=== PATIENT | male | born 1950 | race Caucasian/White ===

== ENCOUNTER 2018-05-05 14:06 | Outpatient (CLI) ==
--- NOTE | 2018-05-06 16:54 | MRI ---
EXAM: Brain MRI without contrast. 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 COMPARISON: Brain MRI with and without contrast. 10/30/2015. TECHNIQUE: Multiplanar, multisequence MR images were acquired of the brain without contrast. Thin s ections were not acquired through the posterior fossa and contrast was not administered which limits sensitivity. FINDINGS: The midline structures are central and the craniocervical junction is unremarkable. There is enlargement of the subarachnoid space over both frontal parietal lobes at the convexity and there is widening of the cerebrospinal fluid in the inferior hemispheric fissure. The ventricles are norm al in size. Some sulci are prominent. These findings are considered within normal variation for the patient's age. The brain parenchyma has no restricted diffusion to suggest acute hypoperfusion or infarction. There are postoperative left small retromastoid craniectomy, partial left mastoidectomy and internal audit ory canal tumor resection changes. A small amount of hyperintense T2 signal encephalomalacia is pres ent along the residual left margin of the cerebellum and the lateral left cerebellar hemisphere is tr uncated as before. Contrast was not administered which limits sensitivity for residual or recurrent e nhancing tumor. No large masses are identified, however, subtle or small lesions may be missed. There is a thin band of periventricular FLAIR hyperintensity are small patchy T2 / FLAIR hyperintensi ties in the bilateral parieto-occipital periventricular white matter and there is a small T2 hyperint ensity in the left frontal periventricular white matter. This is consistent with minor leukomalacia. There are no abnormal foci of dark gradient echo signal. The corpus callosum is normal. The pituit shyanne gland is prominent, particularly the posterior gland which measures 8.5 mm in height, unchanged f rom 10/30/2015. Upper limits of normal for a male patient is 8 mm. Contrast was not administered. There are no intraorbital masses. There has been previous lens surgery bilaterally. Mucosal thicken ing and a small amount fluid is present in the frontal sinus and anterior ethmoid air cells bilateral ly. There are postoperative partial bilateral ethmoidectomy, middle turbinectomy and medial maxillar y antrostomy changes. A small focal area of polypoid mucosal thickening is present along the residua l medial wall of the left maxillary sinus. Flow voids are present in the major intracranial arteries and dural venous sinuses. IMPRESSION: 1. Stable postoperative small left retromastoid craniectomy, partial left mastoidectomy and internal auditory canal tumor resection changes. Hyperintense T2 signal encephalomalacia persists along the residual left margin of the cerebellum which is truncated. No large masses are present in the surgic al bed. Contrast was not administered which limits evaluation for small or subtle lesions. 2. No change mildly enlarged pituitary gland which measures 8.5 mm in height. Clinical consideratio ns include pituitary hyperplasia which may be seen in the setting of hypothyroidism, end organ failur e and neuroendocrine neoplasia. Contrast was not administered and evaluation for a small pituitary mi croadenoma cannot be done. 3. Minor chronic ischemic small vessel disease. 4. No acute cerebral infarct. 5. Prior partial bilateral ethmoidectomies, middle turbinectomies and medial maxillary antrostomies. Polypoid mucosal thickening and fluid opacifies the residual anterior ethmoid air cells bilaterally and there is moderate polypoid mucosal thickening along the anteromedial wall of the left maxillary sinus.
== END 2018-05-05 14:07 | disposition home or self-care (01) ==
LOC: RAD 14:06
PROVIDERS: ATTEND Family Medicine
DX: D33.3 Benign neoplasm of cranial nerves (principal)